=== PATIENT | male | born 1965 | race African-American/Black ===

== ENCOUNTER 2017-09-05 21:51 | Emergency (ER) | payer SELFPAY ==
[~2017-09-05] VITALS: Ht 182.9 cm; Wt 125.0 kg
[~2017-09-05 21:51] MED LIST: CIPR500T4 PO; IOHEXOL 350 MG/ML 10 ML VIAL (for RAD DIAG) IVCONTRAST ONE; IRBE1TAB37 PO; METR500I3 PO; PERC5TAB12 PO; TAMS0.4C67 PO; ZOFR4TAB3 SL
[2017-09-05 22:07] VITALS: BP 169/102; PULSE 83; RESP 20; TEMP 99.2; O2SAT 97
[2017-09-05] MEDS ORDERED: IRBE75TA24 PO (22:35)
[2017-09-05] MEDS ORDERED: LOSA100T PO (22:35)
--- NOTE | 2017-09-05 23:11 | PD ---
HPI Chief Complaint: Abdominal Pain Time Seen by Provider: 23:06 Travel History International Travel<30 days: No Contact w/Intl Traveler<30days: No Traveled to known affect area: No History of Present Illness HPI 52-year-old male presents to the emergency department for 1 week abdominal pain without bowel movement and denies nausea or vomiting. Patient also denies fever chills. Patient has history of diverticulitis. Patient is status post previous appendectomy. Patient is also treated for high blood pressure. Patient denies chest pain shortness of breath nausea vomiting fever chills diabetes dyslipidemia or CAD. Patient denies any mucoid stool or bloody stools. Patient rates discomfort a 6/10 intensity. Patient is unable to identify exacerbating or alleviating factors. [facility] Past Medical History Narrative Medical Hypertension diverticulitis appendectomy; occasional alcohol use; nursing notes reviewed Blood Disorders: No Cancer: No Cardiovascular Problems: Yes Chemotherapy: No Diabetes: No Diminished Hearing: No Diverticulitis: Yes Endocrine: No Gastrointestinal Disorders: Yes Genitourinary: No Hypertension: Yes Immune Disorder: No Musculoskeletal: No Neurologic: No Psychiatric: No Reproductive: No Respiratory: No Radiation Therapy: No Seizures: No Influenza Vaccination: No Past Surgical History Abdominal Surgery: Yes (APPENDECTOMY) AICD: No Appendectomy: Yes Arteriovenous Shunt: No Insulin Pump: No Joint Replacement: No Pacemaker: No Other Surgery: Yes Social History Alcohol Use: Yes (OCCASIONALLY) Tobacco Use: No Substance Use: No Allergies-Medications (Allergen,Severity, Reaction): Coded Allergies: No Known Allergies (Verified Allergy, Unknown, 09/06/17) Reported Meds & Prescriptions Reported Meds & Active Scripts Active Reported Losartan (Losartan Potassium) 100 Mg Tab 100 Mg PO DAILY Avapro (Irbesartan) 75 Mg Tab 75 Mg PO DAILY Review of Systems Except as stated in HPI: all other systems reviewed are Neg General / Constitutional: No: Fever, Chills HENT: No: Congestion Cardiovascular: No: Chest Pain or Discomfort Respiratory: No: Shortness of Breath Gastrointestinal: Positive: Abdominal Pain, No: Nausea, Vomiting, Hematemesis, Hematochezia, Loss of Appetite Genitourinary: No: Dysuria, Flank Pain Musculoskeletal: No: Myalgias, Arthralgias Skin: No Rash Neurologic: No: Weakness Psychiatric: No: Anxiety Endocrine: No: Heat Intolerance Hematologic/Lymphatic: No: Easy Bruising Physical Exam Narrative GENERAL: Well-developed well-nourished male no acute distress or respiratory distress SKIN: Warm and dry. HEAD: Normocephalic. EYES: No scleral icterus. No injection or drainage. NECK: Supple, trachea midline. No JVD or lymphadenopathy. CARDIOVASCULAR: Regular rate and rhythm without murmurs, gallops, or rubs. RESPIRATORY: Breath sounds equal bilaterally. No accessory muscle use. GASTROINTESTINAL: Abdomen soft, mild bilateral lower quadrant tenderness to palpation without guarding or rebound, nondistended. MUSCULOSKELETAL: No cyanosis, or edema. BACK: Nontender without obvious deformity. No CVA tenderness. Data Data Last Documented VS Vital Signs Date Time Temp Pulse Resp B/P (MAP) Pulse Ox O2 Delivery O2 Flow Rate FiO2 09/06/17 02:50 16 09/06/17 01:06 99 Room Air 09/06/17 01:04 80 09/05/17 22:07 99.2 Orders Orders Complete Blood Count With Diff (09/05/17 23:06) Comprehensive Metabolic Panel (09/05/17 23:06) Urinalysis - C+S If Indicated (09/05/17 23:06) Abdomen, Flat & Upright (09/05/17 ) Iv Access Insert/Monitor (09/05/17 23:06) Ecg Monitoring (09/05/17 23:06) Oximetry (09/05/17 23:06) Sodium Chloride 0.9% Flush (Ns Flush) (09/05/17 23:15) Ct Abd/Pel W Iv Contrast(Rout) (09/06/17 ) Sodium Chlorid 0.9% 500 Ml Inj (Ns 500 M (09/06/17 01:45) Ondansetron Inj (Zofran Inj) (09/06/17 01:45) Ketorolac Inj (Toradol Inj) (09/06/17 01:45) Iohexol 350 Inj (Omnipaque 350 Inj) (09/06/17 02:02) Ciprofloxacin (Cipro) (09/06/17 02:30) Metronidazole (Flagyl) (09/06/17 02:30) Oxycodone-Acetamin 5-325 Mg (Percocet (09/06/17 02:30) Ed Discharge Order (09/06/17 02:34) Labs Laboratory Tests Test 09/05/17 23:28 White Blood Count 8.1 TH/MM3 Red Blood Count 4.54 MIL/MM3 Hemoglobin 12.8 GM/DL Hematocrit 37.4 % Mean Corpuscular Volume 82.3 FL Mean Corpuscular Hemoglobin 28.1 PG Mean Corpuscular Hemoglobin Concent 34.2 % Red Cell Distribution Width 12.9 % Platelet Count 298 TH/MM3 Mean Platelet Volume 7.8 FL Neutrophils (%) (Auto) 62.9 % Lymphocytes (%) (Auto) 25.3 % Monocytes (%) (Auto) 6.4 % Eosinophils (%) (Auto) 2.6 % Basophils (%) (Auto) 2.8 % Neutrophils # (Auto) 5.1 TH/MM3 Lymphocytes # (Auto) 2.1 TH/MM3 Monocytes # (Auto) 0.5 TH/MM3 Eosinophils # (Auto) 0.2 TH/MM3 Basophils # (Auto) 0.2 TH/MM3 CBC Comment DIFF FINAL Differential Comment Urine Color YELLOW Urine Turbidity CLEAR Urine pH 6.0 Urine Specific [place] 1.018 Urine Protein NEG mg/dL Urine Glucose (UA) NEG mg/dL Urine Ketones NEG mg/dL Urine Occult Blood NEG Urine Nitrite NEG Urine Bilirubin NEG Urine Leukocyte Esterase NEG Urine RBC 0-2 /hpf Urine WBC 6-8 /hpf Urine Squamous Epithelial Cells 6-8 /hpf Urine Bacteria NONE /hpf Microscopic Urinalysis Comment CULT NOT INDICATED Blood Urea Nitrogen 14 MG/DL Creatinine 1.50 MG/DL Random Glucose 98 MG/DL Total Protein 7.6 GM/DL Albumin 3.5 GM/DL Calcium Level 8.3 MG/DL Alkaline Phosphatase 55 U/L Aspartate Amino Transf (AST/SGOT) 14 U/L Alanine Aminotransferase (ALT/SGPT) 18 U/L Total Bilirubin 0.5 MG/DL Sodium Level 139 MEQ/L Potassium Level 3.5 MEQ/L Chloride Level 106 MEQ/L Carbon Dioxide Level 29.9 MEQ/L Anion Gap 3 MEQ/L Estimat Glomerular Filtration Rate 59 ML/MIN [facility] Medical Decision Making Medical Screen Exam Complete: Yes Emergency Medical Condition: Yes Medical Record Reviewed: Yes Interpretation(s) Last Impressions Abdomen/Pelvis CT 09/06/17 0000 Signed Impressions: Service Date/Time: August 01:56 - CONCLUSION: 1. Diverticulosis without diverticulitis. 2. There are significant inflammatory changes seen involving the ascending colon to proximal transverse colon with marked bowel wall thickening, and pericolonic fat stranding characteristic of colitis. 3. Left renal scarring, bilateral renal cysts are stable. 4. Left hepatic cyst again noted. Satnam Garg MD Abdomen X-Ray 09/05/17 0000 Signed Impressions: Service Date/Time: Tuesday, September 05, 2017 23:26 - CONCLUSION: Nonobstructive bowel gas pattern. Satnam Garg MD CBC & BMP Diagram 09/05/17 23:28 Total Protein 7.6, Albumin 3.5, Calcium Level 8.3 L, Alkaline Phosphatase 55, Aspartate Amino Transf (AST/SGOT) 14 L, Alanine Aminotransferase (ALT/SGPT) 18, Total Bilirubin 0.5 Vital Signs Date Time Temp Pulse Resp B/P (MAP) Pulse Ox O2 Delivery O2 Flow Rate FiO2 09/06/17 01:06 18 99 Room Air 09/06/17 01:04 80 18 161/95 (117) 99 Room Air 09/05/17 22:07 99.2 83 20 169/102 (124) 97 Differential Diagnosis Constipation, colitis, diverticulitis, bowel obstruction Narrative Course Well-developed well-nourished well-hydrated male no acute distress or respiratory distress with mild diffuse tenderness of the lower abdomen without guarding or rebound IV access obtained specimens collected and sent for resulting Lab values grossly within normal range except for renal insufficiency abdominal x-ray reveals no evidence of obstructive pattern patient continues to complain of abdominal pain CT abdomen and pelvis ordered CT abdomen and pelvis shows colitis with diverticulosis but the areas of diverticulosis are in the same areas of the intestinal wall thickening and acute colitis. Patient started on Cipro and Flagyl Patient given one-time dose of Percocet for pain relief Patient is stable for outpatient management and follow-up with his primary care provider Dr. Rizzo whom he will see on Sunday. Patient is encouraged to return to the emergency department for any concerns or change in condition. Diagnosis Primary Impression: Colitis Additional Impressions: Diverticulosis Qualified Codes: K57.30 - Diverticulosis of large intestine without perforation or abscess without bleeding Renal insufficiency Referrals: Primary Care Physician 2 days Patient Instructions: General Instructions Departure Forms: Tests/Procedures, Work Release Special Instructions: no work x 2 days Additional Instructions: Increase fluid hydration Follow-up with her primary care provider call office in a.m. to schedule follow- up appointment Take antibiotic as prescribed Increase fluid hydration Recommend clear liquid diet for next 12-24 hours advance as tolerated to bland/ brat diet and gradually add dietary fiber increase diet to regular diet avoiding fried and fatty foods Use MiraLAX to help as stool softener Take pain medication as prescribed as needed be aware all narcotic pain medication may impair judgment delayed reaction time increased risk for fall, cause constipation and become addictive Med/Other Pt SpecificInfo: Prescription(s) given Scripts Oxycodone-Acetaminophen (Percocet) 5-325 mg Tab 1 TAB PO Q6H Y for PAIN, #7 TAB 0 Refills Prov: Maren Renee MD 09/06/17 Metronidazole (Flagyl) 500 Mg Tab 500 MG PO TID for Infection for 10 Days, TAB 0 Refills Prov: Maren Renee MD 09/06/17 Ciprofloxacin (Cipro) 500 Mg Tab 500 MG PO BID for Infection for 7 Days, #14 TAB 0 Refills Prov: Maren Renee MD 09/06/17 Disposition: 01 DISCHARGE HOME Condition: Stable Maren Renee MD Sep 05, 2017 23:11
[2017-09-05] MEDS ORDERED: SODIUM CHLORIDE 0.9% FLUSH 10 ML FLUSH IV FLUSH PRN (23:15)
[2017-09-05 23:43] LABS: AUTOMATED NEUTROPHIL # 5.1 TH/MM3 (1.8-7.7); BASOPHIL # 0.2 TH/MM3 (0-0.2); BASOPHIL % 2.8 % (0.0-2.0); EOSINOPHIL # 0.2 TH/MM3 (0-0.4); EOSINOPHIL % 2.6 % (0.0-4.0); HEMATOCRIT 37.4 % (39.0-51.0); HEMOGLOBIN 12.8 GM/DL (13.0-17.0); LYMPH % 25.3 % (9.0-44.0); LYMPHOCYTE # 2.1 TH/MM3 (1.0-4.8); MEAN CELL VOLUME 82.3 FL (80.0-100.0); MEAN CORPUSCULAR HEMOGLOBIN 28.1 PG (27.0-34.0); MEAN CORPUSCULAR HGB CONC 34.2 % (32.0-36.0); MEAN PLATELET VOLUME 7.8 FL (7.0-11.0); MONO % 6.4 % (0.0-8.0); MONOCYTE # 0.5 TH/MM3 (0-0.9); NEUT % 62.9 % (16.0-70.0); PLATELET COUNT 298 TH/MM3 (150-450); RED BLOOD COUNT 4.54 MIL/MM3 (4.50-5.90); RED CELL DISTRIBUTION WIDTH 12.9 % (11.6-17.2); WHITE BLOOD COUNT 8.1 TH/MM3 (4.0-11.0)
[2017-09-05 23:48] LABS: BILIRUBIN, URINE NEG (NEG); BLOOD, URINE NEG (NEG); GLUCOSE,URINE NEG (NEG); KETONE, URINE NEG (NEG); NITRITE,URINE NEG (NEG); URINE LEUKOCYTE ESTERASE NEG (NEG)
[2017-09-05 23:50] LABS: CHLORIDE 106 MEQ/L (98-107); SODIUM (NA) 139 MEQ/L (136-145)
--- NOTE | 2017-09-05 23:50 | RADRPT ---
EXAM DATE/TIME: 09/05/2017 23:26 [facility] COMPARISON: No previous studies available for comparison. INDICATIONS : Abdominal pain, distension for 1 week MEDICAL HISTORY : Diverticulitis. SURGICAL HISTORY : Appendectomy. ENCOUNTER: Initial ACUITY: 1 week PAIN SCORE: 8/10 LOCATION: Bilateral abdomen FINDINGS: Supine and upright views of the abdomen were performed. The abdominal bowel gas pattern is normal. No air fluid levels are seen. No abnormal masses, calcifications, or organomegaly is seen. The visu alized lower lungs are clear. No evidence of free intraperitoneal gas. The osseous structures are u nremarkable. CONCLUSION: Nonobstructive bowel gas pattern. Satnam Garg MD on September 05, 2017 at 23:49 Board Certified Radiologist. This report was verified electronically.
[2017-09-05 23:53] LABS: CALCIUM 8.3 MG/DL (8.5-10.1)
[2017-09-05 23:54] LABS: ALBUMIN 3.5 GM/DL (3.4-5.0); BICARBONATE 29.9 MEQ/L (21.0-32.0); BLOOD UREA NITROGEN 14 MG/DL (7-18); GLUCOSE,RANDOM 98 MG/DL (74-106); URINE COLOR YELLOW (YELLW/STRAW)
[2017-09-05 23:55] LABS: RBC, URINE 0-2 /hpf (0-3)
[2017-09-05 23:57] LABS: ALT (GPT) 18 U/L (12-78); AST (GOT) 14 U/L (15-37); GLOMERULAR FILTRATION RATE 59 ML/MIN (>89)
[2017-09-05 23:58] LABS: TOTAL BILIRUBIN ADULT 0.5 MG/DL (0.2-1.0); TOTAL PROTEIN 7.6 GM/DL (6.4-8.2)
[2017-09-06] LABS: ALKALINE PHOSPHATASE 55 U/L (45-117)
[2017-09-06 01:04] VITALS: BP 161/95; PULSE 80; RESP 18; O2SAT 99
[2017-09-06 01:06] VITALS: RESP 18; O2SAT 99
[2017-09-06] MEDS ORDERED: ONDANSETRON HCL 4 MG/2 ML VIAL IV PUSH ONE (01:45)
[2017-09-06] MEDS ORDERED: SODIUM CHLORID 0.9% 500 ML INJ 500 ML IV ONE (01:45)
[2017-09-06] MEDS ORDERED: KETOROLAC TROMETHAMINE 30 MG/ML (IVP) VIAL IV PUSH ONE (01:45)
[2017-09-06] MEDS ORDERED: IOHEXOL 350 MG/ML 10 ML VIAL (for RAD DIAG) IVCONTRAST ONE (02:02)
--- NOTE | 2017-09-06 02:25 | RADRPT ---
EXAM DATE/TIME: 09/06/2017 01:56 [facility] COMPARISON: ABDOMEN FLAT & UPRIGHT, September 05, 2017, 23:26. CT ABDOMEN & PELVIS W CONTRAST, January 03, 2015, 11: 57. INDICATIONS : Abdominal pain with constipation. IV CONTRAST: 100 cc Omnipaque 350 (iohexol) IV ORAL CONTRAST: No oral contrast ingested. RADIATION DOSE: 23.89 CTDIvol (mGy) ; Patient body habitus MEDICAL HISTORY : Cardiovascular disease. Hypertension. Diverticulitis. SURGICAL HISTORY : Appendectomy. ENCOUNTER: Initial ACUITY: 1 day PAIN SCALE: 7/10 LOCATION: abdomen TECHNIQUE: Volumetric scanning of the abdomen and pelvis was performed. Using automated exposure control and ad justment of the mA and/or kV according to patient size, radiation dose was kept as low as reasonably achievable to obtain optimal diagnostic quality images. DICOM format image data is available electro nically for review and comparison. FINDINGS: No pleural or pericardial effusions are identified. There is a tiny cyst in the lateral segment left lobe of the liver. It is unchanged. Gallbladder, spleen, pancreas, adrenal glands unremarkable. There is scarring at the mid to upper pole of left kidney posteriorly. This is stable. Subcentimeter cyst left lower pole kidney. Stable tiny right renal cyst. Urinary bladder is unremarkable. The prostate i s prominent. It measures 4.9 x 6.1 cm in AP transverse dimension. There is diverticulosis of the sigm oid colon and descending colon without evidence for diverticulitis. Transverse and ascending colonic diverticuli are also seen. There is abnormal circumferential bowel wall thickening involving the [place] sverse colon and ascending colon beginning at the hepatic flexure and over several centimeters. There is diverticulosis and significant inflammatory stranding within the pericolonic fat at this level. T his most likely represents a colitis rather than diverticulitis given the marked long segment bowel w all thickening. There is no evidence for abscess or free air. The osseous structures are intact. Lung bases are clear. CONCLUSION: 1. Diverticulosis without diverticulitis. 2. There are significant inflammatory changes seen involving the ascending colon to proximal transver se colon with marked bowel wall thickening, and pericolonic fat stranding characteristic of colitis. 3. Left renal scarring, bilateral renal cysts are stable. 4. Left hepatic cyst again noted. Satnam Garg MD on September 06, 2017 at 2:19 Board Certified Radiologist. This report was verified electronically.
[2017-09-06] MEDS ORDERED: oxyCODONE/ACETAMINOPHEN 5 MG/325 MG TAB PO ONE (02:30)
[2017-09-06] MEDS ORDERED: metroNIDAZOLE 500 MG TAB PO ONE (02:30)
[2017-09-06] MEDS ORDERED: CIPROFLOXACIN 500 MG TAB PO ONE (02:30)
[2017-09-06] MEDS ORDERED: METR-1 PO (02:55)
[2017-09-06] MEDS ORDERED: PERC5TAB12 PO (02:55)
[2017-09-06] MEDS ORDERED: CIPR-9 PO (02:55)
[2017-09-06 03:01] VITALS: BP 158/92
[2017-09-06 03:27] VITALS: RESP 16
== END 2017-09-06 03:09 | disposition home or self-care (01) ==
LOC: PHED 21:51
DX: K52.9 Noninfective gastroenteritis and colitis, unspecified (principal); K57.30 Diverticulosis of large intestine without perforation or abscess without bleeding; N28.9 Disorder of kidney and ureter, unspecified; I10 Essential (primary) hypertension
CPT/HCPCS: 74019; 74177; 80053; 81001; 85025; 96361; 96374; 96375; 99285; J1885; J2405; J7040; Q9967